=== PATIENT | male | born 1945 | race Two or more races ===

== ENCOUNTER 2021-07-10 22:41 | Inpatient (IN) | payer MEDICARE, OTHER ==
[~2021-07-10] VITALS: Ht 170.2 cm; Wt 95.7 kg
[2021-07-11 20:30] VITALS: BP 124/67
[2021-07-11 21:15] VITALS: BP 124/67
--- NOTE | 2021-07-11 22:00 | NUR ---
Patient arrived via ambulance accompanied by 2 multiple drum sander. 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 VS 124/67, HR 60, RR 20, Temp 98.7, O2 sat 97% on 2L NC. Patient pupils equal and reactive to light. Heart rate and ryhthm regular, pacemaker R chest, applied to tele monitor normal sinus paced rhythm. Lung bases slightly diminished but otherwise lung sounds clear. Minimal cough with saliva looking sputum. Bowel sounds active x4 quadrants. Edema to emilia. feet. Scab to L wrist, bruising to R hand and forearm. Weighs 211 pounds. NKA. Called [facility] and Keppra last given at 10am Zos[facility] at 1800. Consents to be obtained from son Immanuel Albrechtdalia Mcdonald. for cardiac catheterization in AM. Noted to have R side cholecystostomy drain. Reports vaccinated for [employer] x2.
[2021-07-11] MEDS ORDERED: PIPE3.379 IV (22:43)
[2021-07-11] MEDS ORDERED: MORP15TA IV (22:43)
[2021-07-11] MEDS ORDERED: NITR0.4T SL (22:43)
[2021-07-11] MEDS ORDERED: ONDA4TAB5 IV (22:43)
[2021-07-11] MEDS ORDERED: LEVE500T9 IV (22:43)
[2021-07-11] MEDS ORDERED: NITROGLYCERIN 0.4 MG/TAB BOTTLE SL PRN (23:30)
[2021-07-11] MEDS ORDERED: ONDANSETRON HCL/PF 4 MG/2 ML VIAL IVP PRN (23:30)
[2021-07-11] MEDS ORDERED: MORPHINE SULFATE INJ 2 MG/ML DISP.SYRIN IV PRN (23:30)
[2021-07-11] MEDS ORDERED: Z GUARD REMEDY 2 OZ OINT TP PRN (23:30)
[2021-07-12] VITALS: BP_SYST 134; BP_SYST 135; BP_DIAS 67; BP_DIAS 77
[2021-07-12] MEDS ORDERED: PIPERACILLIN /TAZOBACTAM 3.375 G in IV D5W 50 ML IV SCH
[2021-07-12] MEDS ORDERED: LEVETIRACETAM (500MG) 500 MG/5 ML VIAL IV ONE (00:20)
[2021-07-12] MEDS: LEVETIRACETAM (500MG) 500 MG in IV NS 0.9% 100 ML IV SCH ×3 (00:27→22:46)
--- NOTE | 2021-07-12 00:30 | NUR ---
COVID AND MRSA SPECIMEN COLLECTED WALKED TO LAB AND SIGNED FOR DROP OFF
[2021-07-12] MEDS ORDERED: PIPERACILLIN /TAZOBACTAM 3.375 G VIAL IV ONE ×2 (01:16→05:47)
[2021-07-12] MEDS: PIPERACILLIN /TAZOBACTAM 3.375 G in IV D5W 50 ML IV SCH ×2 (01:20→05:53)
[2021-07-12 04:00] VITALS: BP 137/83
[2021-07-12] MEDS ORDERED: IV NS 0.9% 1,000 ML ONE (05:56)
[2021-07-12] MEDS ORDERED: IODIXANOL 150 ML IV ONE (05:56)
[2021-07-12] MEDS ORDERED: LIDOCAINE HCL/MPF 1% 30 ML VIAL IJ ONE (05:56)
[2021-07-12] MEDS ORDERED: NITROGLYCERIN IN 5 % DEXTROSE 250 ML IV ONE (05:56)
--- NOTE | 2021-07-12 06:33 | NUR ---
Taken to clinical laboratory manager at 0630. A&Ox2 -at baseline. V-pacing on monitor 60s bpm. VS prior to leaving 124/75, HR 60, temp 97.8, RR 19, O2 95%.
[2021-07-12] MEDS ORDERED: MIDAZOLAM HCL 2 MG/2ML VIAL ONE (06:44)
[2021-07-12] MEDS ORDERED: FENTANYL PF 100MCG/2ML AMPUL ONE (06:44)
[2021-07-12] MEDS ORDERED: NICARDIPINE HCL 25 MG/10 ML VIAL IV ONE (07:48)
[2021-07-12 08:00] VITALS: BP 113/59
[2021-07-12] MEDS: PANTOPRAZOLE 40 MG VIAL IV SCH (08:57)
[2021-07-12 09:19] LABS: BASOPHILS % (AUTO) 0.4 % (0.0-2.0); EOSINOPHILS % (AUTO) 2.5 % (0.0-6.0); HEMATOCRIT 44 % (39-51); HEMOGLOBIN 14.8 g/dL (13.5-17.5); LYMPHOCYTES # (AUTO) 1.2 K/uL (0.8-4.8); MEAN CORPUSCULAR HGB CONC 33 g/dl (31.0-36.0); MEAN CORPUSCULAR VOLUME 96 fL (80-96); MONOCYTES # (AUTO) 0.5 K/uL (0.1-1.30); NEUTROPHILS # (AUTO) 6.5 K/uL (1.8-8.9); NEUTROPHILS % (AUTO) 77.1 % (43.0-81.0); PLATELET COUNT (AUTO) 160 K/uL (150-450); RED BLOOD CELL COUNT(AUTO) 4.62 MIL/uL (4.5-6.0); WHITE BLOOD COUNT (AUTO) 8.4 K/uL (4.3-11.0)
[2021-07-12 09:33] LABS: CALCIUM, SERUM 8.4 mg/dL (8.5-10.1); CREATININE 0.7 mg/dL (0.6-1.3); MAGNESIUM 2.7 mg/dL (1.8-2.4); PHOSPHORUS 2.5 mg/dL (2.5-4.9); POTASSIUM 3.8 mmol/L (3.5-5.1)
[2021-07-12 09:51] LABS: THYROID STIMULATING HORMONE 1.503 uIU/mL (0.358-3.74)
[2021-07-12 10:52] LABS: BAND % (MANUAL) 2 % (0.0-5.0); EOSINOPHILS % (MANUAL) 4 % (0-4); LYMPHOCYTES % (MANUAL) 12 % (16-48); MONOCYTES % (MANUAL) 4 % (0-11.0); NEUTROPHILS % (MANUAL) 78 (42-76)
[2021-07-12] MEDS ORDERED: IV NS 0.9% 1,000 ML IV ONE (11:30)
[2021-07-12 12:00] VITALS: BP 130/66
[2021-07-12] MEDS: PIPERACILLIN /TAZOBACTAM 3.375 G in IV D5W 100 ML IV SCH ×2 (13:25→20:08)
[2021-07-12 16:00] VITALS: BP 144/83
--- NOTE | 2021-07-12 19:45 | NUR ---
COMPLIANCE CLERK OPENING NOTES RECEIVED PT IN BED, AWAKE, WITH FAMILY AT BEDSIDE. PT IS AOx2, DUTCH SPEAKING. PT IS ON OXYGEN VIA NASAL CANNULA @ 3L/MIN AND TOLERATING WELL. NO SOB NOTED. NO S/SX OF RESPIRATORY DISTRESS NOTED. IV ACCESS IN RAC #20 RUNNING NS @ 100 ML/HR. DRAIN IN R POSTERIOR ABDOMEN WITH GREEN DRAINAGE. SAFETY PRECAUTIONS IN PLACE: BED IN LOWEST, LOCKED POSITION, BRAKES ON, AND SIDERAILS UPx2. CALL LIGHT AND TABLE WITHIN REACH. WILL CONTINUE TO MONITOR.
[2021-07-12 20:00] VITALS: BP 131/68
[2021-07-12] MEDS ORDERED: METR250T36 PO (20:08)
[2021-07-12] MEDS ORDERED: AMOX-427 PO (20:08)
[2021-07-13] VITALS: BP 139/74
[2021-07-13 04:00] VITALS: BP 143/83
[2021-07-13] MEDS: PIPERACILLIN /TAZOBACTAM 3.375 G in IV D5W 100 ML IV SCH ×2 (04:49→12:34)
--- NOTE | 2021-07-13 06:46 | NUR ---
RUBBER ATTACHER CLOSING NOTES PT IN BED, AWAKE, WATCHING TV. PT IS AOx2, CHINESE SPEAKING. PT IS ON OXYGEN VIA NASAL CANNULA @ 3L/MIN AND TOLERATING WELL. NO SOB NOTED. NO S/SX OF RESPIRATORY DISTRESS NOTED. IV ACCESS IN RAC #20. IV ACCESS IS PATENT, INTACT, FLUSHING WELL, AND SALINE LOCKED. DRAIN IN R POSTERIOR ABDOMEN WITH GREEN DRAINAGE. ALL NEEDS MET. PT KEPT CLEAN AND DRY. SAFETY PRECAUTIONS IN PLACE: BED IN LOWEST, LOCKED POSITION, BRAKES ON, AND SIDERAILS UPx2. CALL LIGHT AND TABLE WITHIN REACH. WILL ENDORSE TO ONCOMING SHIFT.
--- NOTE | 2021-07-13 07:30 | NUR ---
PLASMA PROCESSOR OPENING NOTES RECEIVED PT ON BED, AWAKE AND AOx2, UZBEK SPEAKING. PT IS ON OXYGEN VIA NASAL CANNULA @ 3L/MIN AND TOLERATING WELL. NO SOB NOTED. NO S/SX OF RESPIRATORY DISTRESS NOTED. TELE MONITOR CURRENTLY READING V-PACING AT 60BPM. WITH IV ACCESS AT RIGHT AC #20 AND AT LEFT FOREARM G20, BOTH SALINE LOCKED, PATENT AND INTACT. DRAIN IN R POSTERIOR ABDOMEN WITH GREEN DRAINAGE. SAFETY PRECAUTIONS IN PLACED: BED IN LOWEST, LOCKED POSITION, BRAKES ON, AND SIDERAILS UPx2. CALL LIGHT AND TABLE WITHIN REACH. WILL CONTINUE TO MONITOR..
[2021-07-13 08:00] VITALS: BP 140/79
[2021-07-13] MEDS: PANTOPRAZOLE 40 MG VIAL IV SCH (08:52)
[2021-07-13] MEDS: LEVETIRACETAM (500MG) 500 MG in IV NS 0.9% 100 ML IV SCH (11:25)
[2021-07-13 12:00] VITALS: BP 129/70
[2021-07-13 16:00] VITALS: BP 121/74
--- NOTE | 2021-07-13 17:55 | NUR ---
TILER'S ASSISTANTPAYROLL AND BENEFITS ASSISTANT NOTES PATIENT FOR DISCHARGE PER DOCTOR'S ORDER.. PATIENT IS FOR DISCHARGE TO HOME WITH HOME HEALTH. PRESCRIPTION GIVEN TO FAMILY AND DISCHARGE INSTRUCTION PROVIDED. TELEMONITOR CURRENTLY READING V-PACING AT 61BPM. SON AND [id number] VERBALIZED UNDERSTANDING. ALL BELONGINGS CHECKED AND ACCOUNTED FOR. PATIENT IS MEDICALLY STABLE STABLE. ASSISTED PATIENT WITH SON AND [id number] TO THE LOBBY AND LEFT VIA PRIVATE CAR IN STABLE CONDITION. INSTRUCTED TO FOLLOW-UP WITH PCP 2 WEEKS AFTER DISCHARGE.
--- NOTE | 2021-07-13 17:55 | NUR ---
SECURITY SYSTEM ANALYSTELECTRONIC EQUIPMENT REPAIRMEN NOTES PATIENT WAS SEEN BY DR. MCKEON WITH ORDERS FOR DISCHARGE. PATIENT IS FOR DISCHARGE TO HOME WITH HOME HEALTH. PRESCRIPTION GIVEN TO PATIENT AND DISCHARGE INSTRUCTION PROVIDED. PATIENT VERBALIZED UNDERSTANDING. ALL BELONGINGS CHECKED. PATIENT IS MEDICALLY STABLE STABLE. PLEURIX DRAINED FROM LEFT LATERAL CHEST AT 75ML. ASSISTED PATIENT WITH AND SON TO THE LOBBY AND LEFT VIA PRIVATE CAR IN STABLE CONDITION. INSTRUCTED TO FOLLOW-UP WITH ONCOLOGY AND FILM FLAT INSPECTOR SCHEDULED. Addendum: 07/13/21 at 1833 by KONG JOINER RN DOCUMENTED ON WRONG PATIENT.
== END 2021-07-13 18:00 | disposition home health service (06) | DRG 287 ==
LOC: TELE 07-11 20:32
PROVIDERS: ADMIT Nurse Practitioner Acute Care; ATTEND Nurse Practitioner Acute Care
PROC: 4A023N7 Measurement of Cardiac Sampling and Pressure, Left Heart, Percutaneous Approach (ICD-10-PCS; principal; 2021-07-12)
PROC: B211YZZ Fluoroscopy of Multiple Coronary Arteries using Other Contrast (ICD-10-PCS; 2021-07-12)
PROC: B31HYZZ Fluoroscopy of Right Upper Extremity Arteries using Other Contrast (ICD-10-PCS; 2021-07-12)
PROC: B41FYZZ Fluoroscopy of Right Lower Extremity Arteries using Other Contrast (ICD-10-PCS; 2021-07-12)
DX: I25.10 Atherosclerotic heart disease of native coronary artery without angina pectoris (principal); I69.854 Hemiplegia and hemiparesis following other cerebrovascular disease affecting left non-dominant side; I50.32 Chronic diastolic (congestive) heart failure; I11.0 Hypertensive heart disease with heart failure; G40.909 Epilepsy, unspecified, not intractable, without status epilepticus; K81.9 Cholecystitis, unspecified; E86.0 Dehydration; Z95.0 Presence of cardiac pacemaker; I69.820 Aphasia following other cerebrovascular disease; Z20.822 Contact with and (suspected) exposure to COVID-19
CPT/HCPCS: 36415; 80048-TC; 80061-TC; 83735-TC; 84100-TC; 84443-TC; 85025-TC; 87081-TC; C1887; C1894; C9113; G0378; G0500; J1644; J1953; J2250; J2543; J3010; J3490; J7030; J7050; J7060; Q9967